=== PATIENT | female | born 1985 | race Two or more races ===

== ENCOUNTER 2025-09-28 21:10 | Emergency (ER) | payer OTHER ==
[~2025-09-28] VITALS: Ht 160 cm; Wt 71.7 kg
[2025-09-28] MEDS ORDERED: ZYRTEC10 M3 PO (21:21)
[2025-09-28] MEDS ORDERED: LABETALOL HCL100 MG PO (21:22)
[2025-09-28] MEDS ORDERED: MONTELUKAST SODI4 M1 (21:22)
[2025-09-28] MEDS ORDERED: ROSUVASTATIN CAL5 MG PO (21:22)
[2025-09-28] MEDS ORDERED: ONDANSETRON HCL 2 MG/ML VIAL ONE (21:42)
[2025-09-28] MEDS ORDERED: KETOROLAC TROMETHAMINE 30 MG VIAL ONE (21:42)
[2025-09-28] MEDS ORDERED: CEFTRIAXONE SODIUM 1,000 MG VIAL ONE (21:42)
[2025-09-28] MEDS ORDERED: TAMSULOSIN HCL 0.4 MG CAP PO ONE ×2 (21:42→21:45)
[2025-09-28] MEDS ORDERED: FAMOTIDINE/PF 20 MG/2 ML VIAL ONE (21:43)
[2025-09-28] MEDS ORDERED: FAMOtidine 10 MG/ML (4ML VIAL) IV ONE (21:45)
[2025-09-28] MEDS ORDERED: CEFTRIAXONE SODIUM 1,000 MG VIAL IV ONE (21:45)
[2025-09-28] MEDS ORDERED: ONDANSETRON HCL 2 MG/ML VIAL IV ONE (21:45)
[2025-09-28] MEDS ORDERED: KETOROLAC TROMETHAMINE 30 MG VIAL IV ONE (21:45)
[2025-09-28 22:03] LABS: BASO % 0.2 % (0.1-1.2); EOS # 0.03 (0.04-0.54); EOS % 0.2 % (0.7-7.0); LYMPH # 1.61 (1.18-3.74); LYMPH % 13.0 % (19.3-53.1); MEAN PLATELET VOLUME 9.60 fl (9.4-12.4); MONO # 0.80 (0.24-0.82); MONO % 6.5 % (4.7-12.5); NEUT # 9.85 (1.56-6.13); NEUT % 79.8 % (34.0-71.1); RED CELL DISTRIBUTION WIDTH 14.7 % (11.6-14.4)
[2025-09-28 22:23] LABS: URINE APPEARANCE Clear; URINE BACTERIA 376.7 uL (0.0-1933); URINE BILIRRUBIN Negative (NEGATIVE); URINE BLOOD Moderate; URINE COLOR Yellow; URINE EPITHELIAL CELLS 17.0 uL (0.0-38.8); URINE GLUCOSE Negative (NEGATIVE); URINE LEUKOCYTE Small; URINE NITRATE Negative; URINE PROTEIN Trace (NEGATIVE); URINE RBC 64.3 uL (0.0-20.8); URINE UROBILINOGEN 0.2 E.U./dl; URINE WBC 92.8 uL (0.0-23.2)
[2025-09-28 22:25] LABS: URINE CAST 0.43 uL (0.0-1.40); URINE KETONE 40 (NEGATIVE)
[2025-09-28 22:50] LABS: ALT/SGPT 24 U/L (12-78); AST/SGOT 23 U/L (15-37); BILIRUBIN TOTAL 1.02 mg/dL (0.3-1.2); BUN CREA RATIO 13 (7.0-25.0); CREATININE SERUM 0.82 mg/dL (0.55-1.02); GFR 76.82; GLOBULINA 3.5 G/DL (2.4-3.5); GLUCOSE FASTING 108 mg/dL (65-100); HCG QUANTITATIVE < 1 mUI/mL (1-3); OSMOLALITY SERUM 281 MOSM/KG (275-295)
[2025-09-29] MEDS ORDERED: CEPHALEXIN500 MG PO (01:58)
[2025-09-29] MEDS ORDERED: TAMS0.4C PO (01:58)
[2025-09-29] MEDS ORDERED: KETO10TA2 PO (01:58)
== END 2025-09-29 03:19 ==
LOC: ER 21:10
PROVIDERS: General Practice
DX: R10.A2 Flank pain, left side (principal); N20.2 Calculus of kidney with calculus of ureter; N13.30 Unspecified hydronephrosis; I10 Essential (primary) hypertension; Z87.09 Personal history of other diseases of the respiratory system